=== PATIENT | male | born 1955 | race Caucasian/White ===

== ENCOUNTER 2016-10-13 10:28 | Inpatient (IN) | payer BC ==
[2016-09-07 11:12] LABS: BASO % 0.2 %; BASO ABS # 0.02 K/uL (0-0.2); COMPLETE YES; EOS % 0.1 %; HEMATOCRIT 48.1 % (42-52); IG% 0.3 %; LYMPH % 10.9 %; LYMPH ABS # 1.23 K/uL (1.2-3.4); MEAN CELL VOLUME 86.4 fL (80-100); MEAN CORPUSCULAR HEMOGLOBIN 29.8 pg (25-34); MEAN CORPUSCULAR HGB CONC 34.5 g/dl (32-36); MEAN PLATELET VOLUME 11.8 fL (7.4-10.4); NEUT % 83.5 %; PLATELET COUNT 248 K/uL (130-400); RED BLOOD COUNT 5.57 M/uL (4.7-6.1); WHITE BLOOD COUNT 11.25 K/uL (4.8-10.8)
[2016-09-07 11:19] LABS: URINE APPEARANCE CLEAR (CLEAR); URINE BILIRUBIN NEG (NEG); URINE COLOR YELLOW; URINE NITRITE NEG (NEG); URINE PH 5.5 (4.5-7.5); URINE SPECIFIC GRAVITY 1.015 (1.000-1.030); UROBILINOGEN NEG (NEG); ZZUR CULT IF INDIC CLEAN CATCH NO
[2016-09-07 11:23] LABS: MANUAL MICROSCOPIC REQUIRED? NO; REVIEW REQ? NO
[2016-09-07 11:25] LABS: PARTIAL THROMBOPLASTIN RATIO 1.1; PROTHROMBIN TIME (PATIENT) 10.3 SECONDS (9.0-12.0)
[2016-09-07 11:49] LABS: BLOOD UREA NITROGEN 21 mg/dl (7-18); CALCIUM 9.3 mg/dl (8.5-10.1); CARBON DIOXIDE 28 mmol/L (21-32); CHLORIDE 105 mmol/L (98-107); CREATININE 0.89 mg/dl (0.60-1.40); GLUCOSE 102 mg/dl (70-99); POTASSIUM 4.2 mmol/L (3.5-5.1); SODIUM 140 mmol/L (136-145)
[2016-10-01 14:58] VITALS: BMI 39.0
--- NOTE | 2016-10-12 18:19 | HISTORY & PHYSICAL EXAMINATION ---
DATE OF ADMISSION: 10/13/2016 CHIEF COMPLAINT: Left hip pain. HISTORY OF PRESENT ILLNESS: This is a 61-year-old male patient of Dr. Muñoz'sravani complaining of chronic left hip pain, longstanding, now progressively getting worse. The patient has been diagnosed with end-stage osteoarthritis, per clinical and radiographic exams. The patient has failed conservative treatment including anti-inflammatories and intra-articular injections. The patient has increased pain with weightbearing activities and his pain does interfere with his activities of daily living. PAST MEDICAL HISTORY: Hypothyroidism, osteoarthritis and asthma. SOCIAL HISTORY: Nonsmoker, nondrinker. PAST SURGICAL HISTORY: Cholecystectomy, hernia and knee scope. FAMILY HISTORY: Noncontributory. REVIEW OF SYSTEMS: The patient complains of chronic left hip pain. Otherwise, denies any shortness of breath, chest pain, nausea, vomiting, or any other joint complaints. MEDICATIONS: Include Synthroid 100 mcg daily, Advair Diskus 100 mcg per 50 mcg 1 puff daily, aspirin 81 mg daily, and vitamin D 2000 international units daily. ALLERGIES: INCLUDE PENICILLIN. PHYSICAL EXAMINATION: GENERAL: Well-developed, well-nourished 61-year-old male in no acute distress. He is alert and oriented x3 and pleasant. HEENT: Normocephalic, atraumatic. Extraocular motions are intact. Pupils are equal and reactive to light. HEART: Regular rate and rhythm, no murmurs. LUNGS: Clear. ABDOMEN: Soft and nontender, bowel sounds are present. EXTREMITIES: Left hip revealed no significant flexion contracture. He does have pain with internal and external rotation passively with some crepitation. He has 5/5 strength. Neurologically and neurovascularly he is intact in his left lower extremity. DIAGNOSES: Left hip end-stage osteoarthritis, hypothyroidism and osteoarthritis. PLAN: The patient was advised of his diagnosis. Indications, risks, benefits, and postop course have all been reviewed. The patient wishes to proceed with an elective left total hip arthroplasty. Necessary consent forms, preoperative testing and clearances will be obtained.
[~2016-10-13] VITALS: Ht 177.8 cm; Wt 122.3 kg
[2016-10-13] VITALS (7 sets, daily range): BP systolic 110–134; BP diastolic 67–80; PULSE 61–78; TEMP 36.4–36.7; O2SAT 92–96; Ht 177.8 cm; Wt 122.3 kg
[2016-10-13] MEDS: TRANEXAMIC ACID INJ 1,000 MG in SODIUM CHLORIDE 0.9% 100ML 100 ML IV SCH ×2 (06:00→06:30)
[~2016-10-13 10:28] MED LIST: ACETAMINOPHEN 500 MG TAB PO SCH; ADVIN10/60 INH; ASPI81TA28 PO; ATROPINE SULFATE 0.1 MG/ML 5ML SYR IV PRN; CHOL2000 PO; CeleBREX 200 MG CAP PO SCH; DEXAMETHASONE 4 MG TAB PO SCH; EpHEDrine SULFATE INJ 50 MG/ML AMP IV PRN; FAMOTIDINE 20 MG TAB PO SCH; FENTANYL CITRATE INJ 50 MCG/1 ML 2 ML VIAL IV PRN; GABAPENTIN 300 MG CAP PO SCH; HYDR-5688 PO; LACTATED RINGER'S 1000ML IV SCH; LACTATED RINGER'S 500 ML IV SCH; LEVO100T PO; METOCLOPRAMIDE HCL 10 MG TAB PO SCH; ONDANSETRON INJ 2 MG/ML 2 ML VIAL IV PRN; ROPIVACAINE 5MG/ML 30 ML 150 MG, BUPIVACAINE/EPINEPHR 0.5% MPF 30 ML, KETOROLAC TROMETH... INFIL SCH; VANCOMYCIN INJ 1,800 MG in SODIUM CHLORIDE 0.9% 500ML 500 ML IV SCH
[2016-10-13] MEDS ORDERED: ADVIN10/60 INH (10:57)
--- NOTE | 2016-10-13 11:01 | History & Physical Bridge Note ---
H&P Re-Evaluation Bridge Note: I have examined the patient, reviewed the History & Physical and in the interval since the performance of the History & Physical I have noted the following changes of clinical significance: No changes noted
[2016-10-13] MEDS ORDERED: MIDAZOLAM HCL 1 MG/ML 2ML VIAL ONE ×2 (11:18→15:09)
[2016-10-13] MEDS ORDERED: FENTANYL CITRATE INJ 50 MCG/1 ML 2 ML VIAL ONE ×2 (11:19→16:39)
[2016-10-13] MEDS ORDERED: ORTHO JOINT ANESTHETIC ONE (12:52)
[2016-10-13] MEDS ORDERED: BACITRACIN 50000 UNIT VIAL ONE (12:53)
[2016-10-13] MEDS ORDERED: POVIDONE-IODINE OP SOLN 30 ML BTL ONE ×2 (12:54→14:14)
[2016-10-13] MEDS ORDERED: BUPIVACAINE 0.5 % 5 MG/1 ML PF 10ML VIAL ONE (13:01)
[2016-10-13] MEDS ORDERED: KETAMINE HCL INJ 50 MG/ML 10 ML VIAL ONE (13:40)
[2016-10-13] MEDS ORDERED: LIDOCAINE HCL 2% 2 ML VIAL (20MG/ML) ONE (14:05)
[2016-10-13] MEDS ORDERED: SODIUM CHLORIDE 0.9% INJ 10 ML VIAL ONE (14:05)
[2016-10-13] MEDS ORDERED: PROPOFOL IV EMULSION 10 MG/ML 20 ML VIAL IV ONE ×3 (14:05→15:48)
--- NOTE | 2016-10-13 17:00 | [facility] Operative Report ---
Operative Report Operative Date Oct 13, 2016. Pre-Operative Diagnosis Left Hip End-stage Osteoarthritis Post-Operative Diagnosis same Procedure(s) Performed left KAEL Surgeon Dr. Arnulfo Muñoz [employer] Surgeon(s) Boaz Liu PA-c Estimated Blood Loss 300 ML Findings GRADE 4 DJD LATERAL SUBLUXATION Specimens Permanent specimen A: Left Femoral head Drains 2 hemovac Anesthesia spinal sedation orhomix Complication(s) None Disposition Recovery Room / PACU Indications end stage oa hip I attest to the content of the Intraoperative Record and any orders documented therein. Any exceptions are noted below.
[2016-10-13] MEDS ORDERED: MAGNESIUM HYDROXIDE SUSP 30 ML UDC PO PRN (17:15)
[2016-10-13] MEDS ORDERED: ZOLPIDEM TARTRATE 5 MG TAB PO PRN (17:15)
[2016-10-13] MEDS ORDERED: DiphenhydrAMINE HCL 50 MG/ML VIAL IV PRN (17:15)
[2016-10-13] MEDS ORDERED: ONDANSETRON INJ 2 MG/ML 2 ML VIAL IV PRN (17:15)
[2016-10-13] MEDS ORDERED: BISACODYL 10 MG SUPP PR PRN (17:15)
[2016-10-13] MEDS ORDERED: FLUTICASONE/SALMETEROL 100/50 (ADVAIR) 14 PUFF/1 INHALER INH SCH (17:15)
[2016-10-13] MEDS ORDERED: MoRPHine SULFATE 2 MG/ML CARP IV PRN ×2 (17:15→18:15)
[2016-10-13] MEDS ORDERED: ALUMINUM/MAGNESIUM/SIMETH (MAALOX MAX) 30 ML UDC PO PRN (17:15)
--- NOTE | 2016-10-13 17:32 | Anesthesiology Progress Note ---
Anesthesia Post Op Note Date & Time Oct 13, 2016 at 17:33 Vital Signs Pain Intensity: 0 Vital Signs Past 12 Hours Date Time Temp Pulse Resp B/P Pulse Ox O2 Delivery O2 Flow Rate FiO2 10/13/16 17:25 36.5 66 16 107/59 94 Nasal Cannula 3 10/13/16 17:15 65 16 104/53 94 Nasal Cannula 3 10/13/16 17:05 67 16 114/67 94 Mask 3 10/13/16 16:56 36.7 68 16 109/71 95 Mask 10 10/13/16 10:40 36.6 78 16 134/80 95 Room Air Notes Mental Status: alert / awake / arousable, participated in evaluation Pt Amnestic to Procedure: Yes Nausea / Vomiting: adequately controlled Pain: adequately controlled Airway Patency, RR, SpO2: stable & adequate BP & HR: stable & adequate Hydration State: stable & adequate Anesthetic Complications: no major complications apparent
--- NOTE | 2016-10-13 18:10 | DIAGNOSTIC IMAGING REPORT ---
SINGLE VIEW PELVIS; SINGLE VIEW LEFT HIP CLINICAL HISTORY: Postoperative examination. FINDINGS: An AP portable view of the hips and lower pelvis with a crosstable lateral portable view of the left hip are obtained. A bipolar left hip arthroplasty is in near-anatomic alignment. 2 cortical lag screws transfix the acetabular cup. No acute fracture is seen. There are expected postoperative changes overlying the left hip including skin clips, a surgical drain, subcutaneous gas, and soft tissue swelling. Mild arthritic change is noted in the right hip. Atherosclerotic calcification is noted in the femoral arteries. IMPRESSION: Expected postoperative findings status post left hip arthroplasty. No acute fracture is seen. Electronically signed by: Umesh Ramirez M.D. 10/13/2016 6:08 PM Dictated Date/Time: 10/13/2016 6:07 PM
[2016-10-13] MEDS ORDERED: MoRPHine SULFATE 4 MG/ML 1 ML CARP\\VIAL IV PRN (18:15)
[2016-10-13] MEDS ORDERED: MoRPHine SULFATE 10 MG/ML CARP/VIAL IV PRN (18:15)
[2016-10-13] MEDS: FERROUS GLUCONATE 324 MG TAB PO SCH (19:45)
[2016-10-13] MEDS: D5W AND 1/2NSS + 20MEQ KCL 1,000 ML IV SCH (19:45)
[2016-10-13] MEDS: FLUTICASONE/SALMETEROL 100/50 (ADVAIR) 14 PUFF/1 INHALER INH SCH (20:30)
[2016-10-13] MEDS: OXYCODONE HCL IR 5 MG TAB (IMMEDIATE RELEASE) PO PRN (20:32)
[2016-10-13] MEDS: SENNA 8.6 MG TAB PO SCH (20:32)
[2016-10-13] MEDS: DOCUSATE SODIUM 100 MG CAP PO SCH (20:33)
[2016-10-13] MEDS: ASPIRIN 81 MG ECTAB PO SCH (20:33)
[2016-10-13] MEDS: ACETAMINOPHEN 500 MG TAB PO SCH (21:38)
[2016-10-13] MEDS: KETOROLAC TROMETHAMINE 30 MG/ML VIAL IV. SCH (21:38)
[2016-10-13] MEDS ORDERED: VANCOMYCIN INJ 1,800 MG in SODIUM CHLORIDE 0.9% 500ML 500 ML IV SCH (23:00)
[2016-10-14] MEDS: D5W AND 1/2NSS + 20MEQ KCL 1,000 ML IV SCH (03:37)
[2016-10-14] MEDS: KETOROLAC TROMETHAMINE 30 MG/ML VIAL IV. SCH ×3 (03:37→16:08)
[2016-10-14 03:40] VITALS: BP 125/68; PULSE 68; TEMP 36.4; O2SAT 94
[2016-10-14] MEDS: ACETAMINOPHEN 500 MG TAB PO SCH ×3 (05:40→21:29)
[2016-10-14] MEDS: LEVOTHYROXINE 100 MCG TAB PO SCH (05:40)
[2016-10-14 05:50] LABS: HEMATOCRIT 36.9 % (42-52); MEAN CELL VOLUME 85.8 fL (80-100); MEAN CORPUSCULAR HEMOGLOBIN 29.8 pg (25-34); MEAN CORPUSCULAR HGB CONC 34.7 g/dl (32-36); MEAN PLATELET VOLUME 11.1 fL (7.4-10.4); PLATELET COUNT 187 K/uL (130-400); WHITE BLOOD COUNT 17.38 K/uL (4.8-10.8)
[2016-10-14 06:13] LABS: BASO % 0.1 %; BASO ABS # 0.01 K/uL (0-0.2); COMPLETE YES; EOS % 0.1 %; IG% 0.3 %; LYMPH % 8.8 %; LYMPH ABS # 1.53 K/uL (1.2-3.4); MONO % 9.7 %
[2016-10-14 06:15] LABS: BUN/CREATININE RATIO 19.9 (10-20); CREATININE 0.83 mg/dl (0.60-1.40); POTASSIUM 4.2 mmol/L (3.5-5.1)
--- NOTE | 2016-10-14 07:07 | OPERATIVE REPORT ---
DATE OF OPERATION: 10/13/2016 INDICATION FOR PROCEDURE: The patient is a 61-year-old male who presents with progressive osteoarthritis of the left hip. His x-rays demonstrate now he has bone on bone in his left hip. He does have some calcification in the lateral acetabulum, large osteophytes there, possibly some heterotrophic bone. He has superior lateral subluxation of the hip which is completely bone on bone at this time. He is also a very large individual, BMI of 38+, and he has very heavy muscles and has obese abdomen. PREOPERATIVE DIAGNOSES: End-stage osteoarthritis, left hip, and obesity. POSTOPERATIVE DIAGNOSES: Same. PROCEDURE: Left total hip arthroplasty with some increased difficulty due to his size and obesity. SURGEON: Dr. Muñoz. PRISON GUARD SUPERVISOR: SARAN Watson. ANESTHESIA: Spinal sedation and Orthomix. OPERATIVE PROCEDURE: The patient was taken to the operating room and anesthetized under anesthesia as dictated. He was placed supine on the operating room table on a sacral pad. He was translated to left side of the bed so his hip could be approached. A foot roll was placed to flex his knee 90 degrees and hip 60 degrees. The bed was placed in Trendelenburg to drain pelvic veins and tilted to the right slightly to help expose the left acetabulum. His left hip was then sterilely prepped and draped in the usual sterile fashion. As part of the prepping and draping, we did have to tape his belly off to the right side of the bed to aid in exposure. We did use ChloraPrep type prep. After appropriate preoperative antibiotics documented, his hip was approached via a Hardinge-type approach. A longitudinal incision was made over the lateral left hip. Skin was incised sharply. Subcutaneous tissue was divided down to the fascia, subcutaneous bleeders were elevated. Subcutaneous flaps were elevated off the deep fascia. Deep fascia was divided longitudinally and the gluteus toya fascia was split proximally. The patient had thickened trochanteric bursa which was resected. Gluteus medius tendon was noted to be intact. The medius was then split between its anterior 40% and posterior 60%. This was divided down to the minimus which was divided and reflected off the capsule. Deep capsule was divided down to the hip joint. A curvilinear incision was made through the gluteus medius tendon, leaving a cuff of tissue for repair on the greater trochanter, and then the vastus lateralis was split longitudinally for about 4 cm and a muscular capsular flap was elevated off the hip joint. Hip joint demonstrated an arthritic hip joint, bone on bone, eburnated bone, femoral neck osteophytes, acetabular osteophytes circumferentially. It was noted the patient very heavily muscled, had a heavy leg, and this did make soft tissue retraction more difficult during the procedure. The hip was then dislocated with flexion and external rotation. The femoral neck cut was made approximately 15 mm proximal to the lesser trochanter in neutral anteversion using an oscillating saw. The femoral neck and head fragment were removed. Then, acetabular retractors were placed. The superior acetabular retractor which was self-retaining type retractor was impacted into the ilium. A blunt Hohmann retractor was placed anteriorly. A double-angled inferior ischial retractor was placed. The acetabular labrum had very large labral tissue which was resected. The patient had anterior, superior, posterior and inferior osteophytes. These were resected with a rongeur. Some of the osteophytes superior laterally were fractured when placing the retractor. I did not affect the integrity of the acetabulum at all. The soft tissue in the acetabular fossa was resected. The anterior capsule was released and partial capsulectomy was performed. Then, I started with a 48 mm reamer, went up in 2 mm increments up to a 58 mm diameter which was appropriate fit and fill. I used the [employer] Trident PSL cup, we chose a 58G cup. We did a trial reduction with the trial first and then went ahead and impacted in the cup. Approximated the cup position to be 45 degrees of abduction and 15 degrees of anteversion. There was good press fit. Two additional bone screws 6.5 x 20 and 25 mm were used. The patient had very hard bone and screws held well. The Trident X3 poly 36-mm 10-degree G liner was placed with high wall posteriorly. This was also assessed to be stable. We irrigated out the hip with saline copiously. Then, went ahead and prepared the femur. The femur was exposed with flexion and external rotation. The box osteotome was used to open up the canal. Canal reamer was used and sequential broaches up to a 5 which had a tight fit and fill. We used 127-degree neck angle based on preoperative templating. A +0 neck length. We reduced the hip trial and leg lengths, there was lengthening by a few millimeters, but there was satisfactory stability through full range of motion. The trials were redislocated, trials removed, and canal irrigated again with sterile saline solution and pulsatile lavage. Then, the final component was the Accolade tapered uncemented stem, this was the Accolade II stem which was 5 with 127-degree neck angle. This was impacted into position with a tight pressfit. Then, we placed on the [employer] ceramic 36 mm +0 neck length head. This was reduced to the acetabulum. Stability was verified. After copious irrigation, 2 drains were brought out laterally deep to the gluteus medius. Then, the gluteus medius was repaired with transosseous #5 FiberWire sutures with German-Douglas suture technique and lateral row soft tissue repair with [id number] #2 FiberWire with the split in the medius repaired with [id number]-[id number] #1 Vicryl and the vastus lateralis split closed with interrupted #1 Vicryl. Prior to the repair and closure, we did do a Betadine soak per protocol. We also injected Orthomix. The wound was irrigated again with sterile saline. Then, the fascia liss was closed with interrupted [id number] #1 Vicryl sutures. The subcutaneous tissue closed in layers with interrupted 2-0 Vicryl and skin was closed with stanton and a sterile dressing was applied. The patient had approximately 300 mL of blood loss. SARAN Watson, was my first breaker feeder. He functioned as first breaker feeder throughout the procedure with soft tissue retraction, instrument management, leg positioning, leg retraction as necessary, and he did perform the final outer fascial closure, subcutaneous and skin closure, and will participate in some of the postop care of the patient. I attest to the content of the Intraoperative Record and any orders documented therein. Any exceptio ns are noted below.
[2016-10-14 07:15] VITALS: BP 114/67; PULSE 61; TEMP 36.7; O2SAT 96
--- NOTE | 2016-10-14 08:06 | Orthopedic Progress Note ---
Orthopedic Progress Note Date of Service Oct 14, 2016. Subjective Post OP Day: 1 Reports: feeling well, pain controlled w PO medications, Denies: SOB, calf pain , chest pain, complaints, light headedness, nausea / vomiting Objective calves soft nontender, N/V intact, hip located, capillary refill less than 2 sec., dressing C/D/I, A&O x3, toes mobile Silverlon in tact. Date Time Temp Pulse Resp B/P Pulse Ox O2 Delivery O2 Flow Rate FiO2 10/14/16 07:15 36.7 61 18 114/67 96 Room Air 10/14/16 03:40 36.4 68 18 125/68 94 Room Air 10/14/16 00:02 Room Air 10/13/16 23:10 36.7 61 18 116/67 92 Room Air 10/13/16 21:04 36.6 66 18 110/70 93 Nasal Cannula 2.0 10/13/16 19:38 36.4 63 18 113/71 96 Nasal Cannula 2.0 10/13/16 18:48 36.5 62 18 111/69 95 Nasal Cannula 2.0 10/13/16 18:08 36.5 63 18 110/71 96 Nasal Cannula 4.0 10/13/16 17:35 94 Nasal Cannula 3.0 10/13/16 17:35 36.5 65 20 115/74 94 Nasal Cannula 4.0 10/13/16 17:35 Nasal Cannula 3.0 10/13/16 17:25 36.5 66 16 107/59 94 Nasal Cannula 3 10/13/16 17:15 65 16 104/53 94 Nasal Cannula 3 10/13/16 17:05 67 16 114/67 94 Mask 3 10/13/16 16:56 36.7 68 16 109/71 95 Mask 10 10/13/16 10:40 36.6 78 16 134/80 95 Room Air Laboratory Results 24 Hours: Test 10/14/16 05:15 White Blood Count 17.38 K/uL Red Blood Count 4.30 M/uL Hemoglobin 12.8 g/dL Hematocrit 36.9 % Mean Corpuscular Volume 85.8 fL Mean Corpuscular Hemoglobin 29.8 pg Mean Corpuscular Hemoglobin Concent 34.7 g/dl Platelet Count 187 K/uL Mean Platelet Volume 11.1 fL Neutrophils (%) (Auto) 81.0 % Lymphocytes (%) (Auto) 8.8 % Monocytes (%) (Auto) 9.7 % Eosinophils (%) (Auto) 0.1 % Basophils (%) (Auto) 0.1 % Neutrophils # (Auto) 14.09 K/uL Lymphocytes # (Auto) 1.53 K/uL Monocytes # (Auto) 1.69 K/uL Eosinophils # (Auto) 0.01 K/uL Basophils # (Auto) 0.01 K/uL Assessment & Plan Assessment: POD #1, Left KAEL Plan: PT/ OT DVT proph- ASA D/C planning- Home w Inhouse Planning Pain Management: Toradol, Morphine, PO Tylenol, Oxy IR DVT Prophylaxis: TEDs, SCDs, ASA Discharge Planning Discharge Planning: home with home health Pain Management: PO Tylenol, Oxy IR DVT Prophylaxis: TEDs, ASA Therapy: Physical Therapy, Occupational Therapy
[2016-10-14] MEDS: FLUTICASONE/SALMETEROL 100/50 (ADVAIR) 14 PUFF/1 INHALER INH SCH ×2 (08:35→20:46)
[2016-10-14] MEDS: FERROUS GLUCONATE 324 MG TAB PO SCH ×3 (08:36→17:38)
[2016-10-14] MEDS: ASPIRIN 81 MG ECTAB PO SCH ×2 (08:36→20:46)
[2016-10-14] MEDS: DOCUSATE SODIUM 100 MG CAP PO SCH ×2 (08:36→20:46)
[2016-10-14] MEDS: MULTIVITAMIN TAB PO SCH (08:36)
[2016-10-14] MEDS: PANTOprazole SOD 40 MG TAB PO SCH (08:37)
[2016-10-14] MEDS: CHOLECALCIFEROL 1000 INTER.UNIT TAB PO SCH (08:37)
[2016-10-14 09:38] VITALS: PULSE 62; O2SAT 98
--- NOTE | 2016-10-14 10:04 | Anesthesiology Progress Note ---
Anesthesia Post Op Note Date & Time Oct 14, 2016 at 10:04 Vital Signs Pain Intensity: 3.0 Vital Signs Past 12 Hours Date Time Temp Pulse Resp B/P Pulse Ox O2 Delivery O2 Flow Rate FiO2 10/14/16 09:38 62 98 10/14/16 08:29 Room Air 10/14/16 07:15 36.7 61 18 114/67 96 Room Air 10/14/16 03:40 36.4 68 18 125/68 94 Room Air 10/14/16 00:02 Room Air 10/13/16 23:10 36.7 61 18 116/67 92 Room Air Notes Mental Status: alert / awake / arousable, participated in evaluation Pt Amnestic to Procedure: Yes Nausea / Vomiting: adequately controlled Pain: adequately controlled Airway Patency, RR, SpO2: stable & adequate BP & HR: stable & adequate Hydration State: stable & adequate Neuraxial Anesthesia: sensory block resolved Anesthetic Complications: no major complications apparent
--- NOTE | 2016-10-14 11:56 | Medical Consult ---
Consultation Date of Consultation: Oct 14, 2016. Attending Physician: Arnulfo Muñoz M.D. Reason for Consultation: Medical management History of Present Illness This is a 61 y/o male with a history of asthma and hypothyroidism who presents s /p left total hip arthroplasty with Dr. Muñoz on 10/13 for medical management. The patient reports feeling well. He states that his pain is well controlled. He is eating well and urinating without difficulties. The patient was able to pass some gas this morning and had a small bowel movement after that. Patient has been afebrile, and vital signs have been stable. The patient denies fevers , chills, sweats, chest pain, palpitations, claudication, cough, wheezing, shortness of breath, nausea, vomiting, abdominal pain, dysuria, hematuria, urinary retention, paralysis, weakness, numbness and tingling. Past Medical/Surgical History Asthma--chronic Hypothyroidism--chronic Family History Colon cancer Hypertension Myocardial infarction at age less than 60 Social History Smoking Status: Never Smoker Smokeless Tobacco Use: No Alcohol Use: socially (2-3 beers once a week) Drug Use: none Marital Status: Housing Status: lives with significant other Occupation Status: employed Allergies Coded Allergies: Penicillins (Verified Allergy, Intermediate, HIVES, 10/13/16) Bacitracin (Verified Allergy, Unknown, per PCP note , 10/13/16) Neomycin (Verified Allergy, Unknown, per PCP note , 10/13/16) Polymyxin B (Verified Allergy, Unknown, per PCP note , 10/13/16) Current Inpatient Medications Current Inpatient Medications Medications (Trade) Dose Ordered Sig/Raghavendra Route Start Time Stop Time Status Last Admin Dose Admin Salmeterol Xinafoate/ Fluticasone (Advair Diskus 100/50 Inh) 1 puff BID INH 10/13/16 21:00 11/12/16 20:59 10/14/16 08:35 1 PUFF Levothyroxine Sodium (Synthroid Tab) 100 mcg DAILYBB PO 10/14/16 06:00 11/13/16 05:59 10/14/16 05:40 100 MCG Cholecalciferol 2000 inter.unit 2,000 inter.unit QAM PO 10/14/16 09:00 11/13/16 08:59 10/14/16 08:37 2,000 INTER.UNIT Potassium Chloride/Dextrose/ Sod Cl (D5W And 1/2nss + 20meq KCl) 1,000 ml @ 100 mls/hr Q10H IV 10/13/16 17:01 10/14/16 17:00 10/14/16 03:37 100 MLS/HR Ketorolac Tromethamine (Toradol Inj) 30 mg Q6H IV. 10/13/16 22:00 10/14/16 21:59 10/14/16 09:52 30 MG Oxycodone HCl (Roxicodone Immediate Rel Tab) 1 TABLET FOR PAIN RATING... Q4H PRN PO 10/13/16 17:15 10/27/16 17:14 10/13/16 20:32 10 MG Acetaminophen (Tylenol Tab) 1,000 mg Q8H PO 10/13/16 22:00 11/12/16 21:59 10/14/16 05:40 1,000 MG Magnesium Hydroxide (Milk Of Magnesia Susp) 30 ml Q6H PRN PO 10/13/16 17:15 11/12/16 17:14 Bisacodyl (Dulcolax Supp) 10 mg DAILY PRN ND 10/13/16 17:15 11/12/16 17:14 Senna (Senokot Tab) 17.2 mg HS PO 10/13/16 21:00 11/12/16 20:59 10/13/16 20:32 17.2 MG Docusate Sodium (coLACE CAP) 100 mg BID PO 10/13/16 21:00 11/12/16 20:59 10/14/16 08:36 100 MG Diphenhydramine HCl (Benadryl Inj) 25 mg Q8H PRN IV 10/13/16 17:15 11/12/16 17:14 Al Hydrox/Mg Hydrox/Simethicone (Maalox Max Susp) 15 ml Q4H PRN PO 10/13/16 17:15 11/12/16 17:14 Zolpidem Tartrate (Ambien Tab) 5 mg HSZ PRN PO 10/13/16 17:15 11/12/16 17:14 Multivitamins (Multivitamin Tab) 1 tab QAM PO 10/14/16 09:00 11/13/16 08:59 10/14/16 08:36 1 TAB Ondansetron HCl (Zofran Inj) 4 mg Q6H PRN IV 10/13/16 17:15 11/12/16 17:14 Ferrous Gluconate (Ferrous Gluconate Tab) 324 mg TIDM PO 10/13/16 17:45 11/12/16 17:59 10/14/16 08:36 324 MG Pantoprazole Sodium (Protonix Tab) 40 mg QAM PO 10/14/16 09:00 11/13/16 08:59 10/14/16 08:37 40 MG Aspirin (Ecotrin Tab) 81 mg BID PO 10/13/16 21:00 11/12/16 20:59 10/14/16 08:36 81 MG Morphine Sulfate (MoRPHine SULFATE INJ) 2 mg Q4HWA PRN IV 10/13/16 18:15 10/27/16 18:14 Morphine Sulfate (MoRPHine SULFATE INJ) 4 mg Q4HWA PRN IV 10/13/16 18:15 10/27/16 18:14 Morphine Sulfate (MoRPHine SULFATE INJ) 6 mg Q4HWA PRN IV 10/13/16 18:15 10/27/16 18:14 Review of Systems See HPI for pertinent positives and negatives. All other systems reviewed and negative. Physical Exam Date Time Temp Pulse Resp B/P Pulse Ox O2 Delivery O2 Flow Rate FiO2 10/14/16 09:38 62 98 10/14/16 08:29 Room Air 10/14/16 07:15 36.7 61 18 114/67 96 Room Air 10/14/16 03:40 36.4 68 18 125/68 94 Room Air 10/14/16 00:02 Room Air 10/13/16 23:10 36.7 61 18 116/67 92 Room Air 10/13/16 21:04 36.6 66 18 110/70 93 Nasal Cannula 2.0 10/13/16 19:38 36.4 63 18 113/71 96 Nasal Cannula 2.0 10/13/16 18:48 36.5 62 18 111/69 95 Nasal Cannula 2.0 10/13/16 18:08 36.5 63 18 110/71 96 Nasal Cannula 4.0 10/13/16 17:35 94 Nasal Cannula 3.0 10/13/16 17:35 36.5 65 20 115/74 94 Nasal Cannula 4.0 10/13/16 17:35 Nasal Cannula 3.0 10/13/16 17:25 36.5 66 16 107/59 94 Nasal Cannula 3 10/13/16 17:15 65 16 104/53 94 Nasal Cannula 3 10/13/16 17:05 67 16 114/67 94 Mask 3 10/13/16 16:56 36.7 68 16 109/71 95 Mask 10 General Appearance: WD/WN, no apparent distress, + obese Head: normocephalic, atraumatic Eyes: normal inspection, PERRL, EOMI ENT: normal ENT inspection, hearing grossly normal, pharynx normal Neck: supple, no JVD, trachea midline Respiratory/Chest: lungs clear, normal breath sounds, no respiratory distress Cardiovascular: regular rate, rhythm, no gallop, no murmur Abdomen/GI: normal bowel sounds, non tender, soft Extremities/Musculoskelatal: normal inspection, no calf tenderness, no pedal edema, + pertinent finding (drain in place left hip) Neurologic/Psych: alert, normal mood/affect, oriented x 3 Skin: normal color, warm/dry, no rash Laboratory Results Last 24 Hours Test 10/14/16 05:15 White Blood Count 17.38 K/uL Red Blood Count 4.30 M/uL Hemoglobin 12.8 g/dL Hematocrit 36.9 % Mean Corpuscular Volume 85.8 fL Mean Corpuscular Hemoglobin 29.8 pg Mean Corpuscular Hemoglobin Concent 34.7 g/dl Platelet Count 187 K/uL Mean Platelet Volume 11.1 fL Neutrophils (%) (Auto) 81.0 % Lymphocytes (%) (Auto) 8.8 % Monocytes (%) (Auto) 9.7 % Eosinophils (%) (Auto) 0.1 % Basophils (%) (Auto) 0.1 % Neutrophils # (Auto) 14.09 K/uL Lymphocytes # (Auto) 1.53 K/uL Monocytes # (Auto) 1.69 K/uL Eosinophils # (Auto) 0.01 K/uL Basophils # (Auto) 0.01 K/uL RDW Standard Deviation 43.3 fL RDW Coefficient of Variation 13.9 % Immature Granulocyte % (Auto) 0.3 % Immature Granulocyte # (Auto) 0.05 K/uL Red Blood Cell Morphology Unremarkable Sodium Level 140 mmol/L Potassium Level 4.2 mmol/L Chloride Level 107 mmol/L Carbon Dioxide Level 25 mmol/L Anion Gap 8.0 mmol/L Blood Urea Nitrogen 17 mg/dl Creatinine 0.83 mg/dl Est Creatinine Clear Calc Drug Dose 121.0 ml/min Estimated GFR () 109.3 Estimated GFR (Non- 94.3 BUN/Creatinine Ratio 19.9 Random Glucose 146 mg/dl Calcium Level 8.0 mg/dl Assessment & Plan 61 y/o male with a history of asthma and hypothyroidism who presents s/p left total hip arthroplasty with Dr. Muñoz on 10/13 for medical management. Tolerated procedure well. Eating and urinating without difficulties. Passed gas and had a bowel movement. Afebrile, VSS. -Pain management, DVT prophylaxis, and PT/OT as per primary team Asthma -Continue Advair 1 puff inhaled qd Hypothyroidism -Continue Synthroid 100 g PO qd Code Status -Level I, FULL RESUSCITATION STATUS Thank you for this consultation. We will continue to follow. I agree with PA assessment and plan and have seen and examined pt myself Resting comfortably in bed Ambulation Mild-mod joint pain VSS Labs reviewed Stable for medical standpoint for discharge
[2016-10-14] MEDS ORDERED: NURSING VERBAL MED ORDER ONE (12:30)
[2016-10-14] MEDS: OXYCODONE HCL IR 5 MG TAB (IMMEDIATE RELEASE) PO PRN (13:40)
[2016-10-14 15:00] VITALS: BP 124/70; PULSE 62; TEMP 36.6; O2SAT 98
[2016-10-14] MEDS: SENNA 8.6 MG TAB PO SCH (20:47)
[2016-10-14 23:25] VITALS: BP 108/62; PULSE 70; TEMP 36.9; O2SAT 96
[2016-10-15] MEDS: OXYCODONE HCL IR 5 MG TAB (IMMEDIATE RELEASE) PO PRN ×2 (00:06→07:45)
[2016-10-15] MEDS: LEVOTHYROXINE 100 MCG TAB PO SCH (05:54)
[2016-10-15] MEDS: ACETAMINOPHEN 500 MG TAB PO SCH (05:55)
[2016-10-15 05:56] LABS: MEAN CELL VOLUME 88.2 fL (80-100); MEAN CORPUSCULAR HEMOGLOBIN 30.4 pg (25-34); MEAN CORPUSCULAR HGB CONC 34.4 g/dl (32-36); MEAN PLATELET VOLUME 11.5 fL (7.4-10.4); PLATELET COUNT 159 K/uL (130-400); RED BLOOD COUNT 4.08 M/uL (4.7-6.1); WHITE BLOOD COUNT 8.31 K/uL (4.8-10.8)
[2016-10-15 06:26] LABS: BUN/CREATININE RATIO 18.6 (10-20); CALCIUM 7.8 mg/dl (8.5-10.1); CREATININE 0.84 mg/dl (0.60-1.40); POTASSIUM 3.8 mmol/L (3.5-5.1)
[2016-10-15 06:28] VITALS: BP 117/64; PULSE 71; TEMP 36.5; O2SAT 93
[2016-10-15] MEDS: FERROUS GLUCONATE 324 MG TAB PO SCH (07:40)
[2016-10-15] MEDS: MULTIVITAMIN TAB PO SCH (07:40)
[2016-10-15] MEDS: PANTOprazole SOD 40 MG TAB PO SCH (07:40)
[2016-10-15] MEDS: FLUTICASONE/SALMETEROL 100/50 (ADVAIR) 14 PUFF/1 INHALER INH SCH (07:40)
[2016-10-15] MEDS: CHOLECALCIFEROL 1000 INTER.UNIT TAB PO SCH (07:41)
[2016-10-15] MEDS: ASPIRIN 81 MG ECTAB PO SCH (07:41)
[2016-10-15] MEDS: DOCUSATE SODIUM 100 MG CAP PO SCH (07:41)
[2016-10-15 07:59] VITALS: BP 130/78; PULSE 73; TEMP 37.1; O2SAT 93
[2016-10-15 08:14] VITALS: O2SAT 93
--- NOTE | 2016-10-15 08:22 | Orthopedic Progress Note ---
Orthopedic Progress Note Date of Service Oct 15, 2016. Subjective Post OP Day: 2 Reports: feeling well, pain controlled w PO medications, Denies: SOB, calf pain , chest pain, complaints, light headedness, nausea / vomiting Objective calves soft nontender, N/V intact, hip located, capillary refill less than 2 sec., dressing C/D/I, A&O x3, toes mobile Silverlon in tact. Date Time Temp Pulse Resp B/P Pulse Ox O2 Delivery O2 Flow Rate FiO2 10/15/16 08:14 93 Room Air 10/15/16 07:59 37.1 73 15 130/78 93 Room Air 10/15/16 06:28 36.5 71 18 117/64 93 Room Air 10/15/16 00:12 Room Air 10/14/16 23:25 36.9 70 18 108/62 96 Room Air 10/14/16 15:42 Room Air 10/14/16 15:00 36.6 62 18 124/70 98 Room Air 10/14/16 09:38 62 98 10/14/16 08:29 Room Air Laboratory Results 24 Hours: Test 10/15/16 05:17 Hematocrit 36.0 % Hemoglobin 12.4 g/dL Assessment & Plan Assessment: POD #2, Left KAEL Plan: PT/ OT DVT proph- ASA D/C planning- Home w HH today Appreciate medical input. Inhouse Planning Pain Management: Toradol, Morphine, PO Tylenol, Oxy IR DVT Prophylaxis: TEDs, SCDs, ASA Discharge Planning Discharge Planning: home with home health Pain Management: PO Tylenol, Oxy IR DVT Prophylaxis: TEDs, ASA Therapy: Physical Therapy, Occupational Therapy
[2016-10-15] MEDS ORDERED: ASPEC81 PO (08:25)
[2016-10-15] MEDS ORDERED: RXC5 PO (08:25)
[2016-10-15] MEDS ORDERED: ONDA8TAB6 PO (08:25)
[2016-10-15] MEDS ORDERED: ACET-1138 PO (08:25)
--- NOTE | 2016-10-15 08:27 | Discharge Instructions ---
Discharge Instructions Date of Service Oct 15, 2016. Admission Reason for Admission: Left Hip Degenerative Joint Disease Discharge Discharge Diagnosis / Problem: Left KAEL Discharge Goals Goal(s): Improve function Activity Recommendations Activity Limitations: as noted below . Instructions / Follow-Up Instructions / Follow-Up ACTIVITY RECOMMENDATIONS: SELF CARE INSTRUCTIONS AFTER TOTAL HIP REPLACEMENT Until the incision and soft tissues around your hip have healed, there is a possibility that the hip prosthesis could dislocate. A. Observe the following precautions to prevent dislocation: 1. Don't bend your hip greater than 90 degrees. 2. Avoid crossing your legs or ankles while standing or lying. 3. Sit with your feet placed 6 inches apart. 4. When sitting, keep your knees below your hips. Sit on a firm surface, avoid deep, soft chairs and couches. Use an elevated toilet seat in the bathroom. 5. Don't bend over at the waist. Use a long handled shoehorn and a sock aid to help you put on your shoes and socks. A research greenhouse supervisor can help you cotton picker operator objects that are too high or too low to reach. 6. Keep car riding to a minimum for at least one month after surgery. B. Your balance may be shaky for a while. Use crutches or a walker until directed by your doctor. C. Use hand rails when walking on stairs. D. Wear low heeled shoes with non-slip soles. E. Be sure that your floors are free of things that could trip you - throw rugs , electrical cords, small objects. Avoid wet and waxed floors, especially with crutches and canes. F. Try to walk several times a day with rest periods between. G. Continue with all the exercises taught to you in the hospital. Again, make walking a part of your daily routine. SPECIAL CARE INSTRUCTIONS: VERY IMPORTANT TO READ AND REVIEW A. You may still be at risk for phlebitis and blood clots. 1. Wear surgical stockings (DEBBY hose) for 2 weeks after surgery to improve circulation and reduce swelling. 2. Take Aspirin 81mg twice daily for 4 weeks or as directed by your doctor. This is your blood thinner. 3. High risk patients may be prescribed a stronger blood thinner if necessary. 4. If you are on Coumadin normally, your family doctor/diesel bus mechanic should monitor your blood work. Expect a phone call the day of or the day after bloodwork is drawn to adjust your dosage. B. You must take antibiotics before having dental work, bladder, bowel and other surgery. Your doctor will provide you with a permanent card to carry describing precautions. C. Call [facility] if you have a fever, redness or swelling around the incision, cloudy drainage from incision, or sudden increase in pain in your hip, not relieved by your regular pain medication. D. Please call the office at if you have any concerns or questions about your operation or recovery. * YOU MAY SHOWER, NO TUB BATHS UNTIL CLEARED BY YOUR DOCTOR. * WEAR DEBBY HOSE 20 HOURS PER DAY FOR 2 WEEKS. * YOU SHOULD USE A WALKER OR CRUTCHES FOR 2-4 WEEKS. THIS WILL HELP PREVENT STRAIN ON YOUR HIP MUSCLE AND ALLOW IT TO HEAL PROPERLY. YOU MAY WEAN TO A CANE TOLERATED. * MOST PATIENTS WILL HAVE HOME NURSING FOR THERAPY. IF YOU DECIDE TO DO OUTPATIENT PHYSICAL THERAPY, PLEASE SCHEDULE THIS 3 TIMES PER WEEK. * YOU MAY HAVE A LARGE, BAND-RENAN LIKE DRESSING (SILVERON). THIS WILL REMAIN ON YOUR INCISION FOR 7 DAYS, THEN CAN BE REMOVED. IF INCISION IS LEAKING THROUGH DRESSING, PLEASE CALL THE OFFICE . FOLLOW UP VISIT: If appointment is not already scheduled: Please call [facility] to make a follow-up appointment for 2 weeks after your surgery at . Current Hospital Diet Patient's current hospital diet: Regular Diet Discharge Diet Recommended Diet: Regular Diet Procedures Procedures Performed: Left Total Hip Arthroplasty Uncemented Pending Studies Studies pending at discharge: no Medical Emergencies . Who to Call and When: Medical Emergencies: If at any time you feel your situation is an emergency, please call [phone] immediately. . Non-Emergent Contact Non-Emergency issues call your: Primary Care Provider . "Provider Documentation" section prepared by Leonel Bennett. VTE Core Measure Inpt VTE Proph given/why not?: Other Anticoagulation (asa), T.E.Raiza Gallegos, SCD's [place] Drug Monitoring Program Search Results: patient reviewed within database, no issues identified
[2016-10-15 08:45] VITALS: BP 130/78; PULSE 73; TEMP 37.1; O2SAT 93
--- NOTE | 2016-10-15 09:02 | Hospitalist Progress Note ---
Hospitalist Progress Note Date of Service Oct 15, 2016. (Melba Anguiano PA-C) Subjective Pt evaluation today including: conversation w/ patient, physical exam, chart review, lab review, review of inpatient medication list PO Intake: Tolerating PO diet Voiding: no voiding problems Patient is feeling well. He denies any new complaints. He is eating well and urinating without difficulties. The patient is passing gas and had a bowel movement yesterday. His left hip pain is well controlled. The patient denies fevers, chills, sweats, chest pain, palpitations, claudication, cough, wheezing , shortness of breath, nausea, vomiting, abdominal pain, dysuria, hematuria, urinary retention, paralysis, weakness, numbness and tingling. Additional Comments: See HPI for pertinent positives and negatives. All other systems reviewed and negative. (Melba Anguiano, DEMONDC) Objective Vital Signs Date Time Temp Pulse Resp B/P Pulse Ox O2 Delivery O2 Flow Rate FiO2 10/15/16 08:45 37.1 73 15 93 Room Air 10/15/16 08:14 93 Room Air 10/15/16 07:59 37.1 73 15 130/78 93 Room Air 10/15/16 07:30 Room Air 10/15/16 06:28 36.5 71 18 117/64 93 Room Air 10/15/16 00:12 Room Air 10/14/16 23:25 36.9 70 18 108/62 96 Room Air 10/14/16 15:42 Room Air 10/14/16 15:00 36.6 62 18 124/70 98 Room Air 10/14/16 09:38 62 98 (Melba Anguiaon PA-C) Physical Exam General Appearance: WD/WN, no apparent distress, + obese Eyes: normal inspection, PERRL, EOMI ENT: normal ENT inspection, hearing grossly normal, pharynx normal Neck: supple, no JVD, trachea midline Respiratory/Chest: lungs clear, normal breath sounds, no respiratory distress Cardiovascular: regular rate, rhythm, no gallop, no murmur Abdomen: normal bowel sounds, non tender, soft Extremities: normal inspection, no pedal edema, no calf tenderness Neurologic/Psychiatric: alert, normal mood/affect, oriented x 3 Skin: normal color, warm/dry, no rash (Melba Anguiano PA-C) Laboratory Results Last 24 Hours Test 10/15/16 05:17 White Blood Count 8.31 K/uL Red Blood Count 4.08 M/uL Hemoglobin 12.4 g/dL Hematocrit 36.0 % Mean Corpuscular Volume 88.2 fL Mean Corpuscular Hemoglobin 30.4 pg Mean Corpuscular Hemoglobin Concent 34.4 g/dl RDW Standard Deviation 46.9 fL RDW Coefficient of Variation 14.4 % Platelet Count 159 K/uL Mean Platelet Volume 11.5 fL Sodium Level 143 mmol/L Potassium Level 3.8 mmol/L Chloride Level 108 mmol/L Carbon Dioxide Level 27 mmol/L Anion Gap 8.0 mmol/L Blood Urea Nitrogen 16 mg/dl Creatinine 0.84 mg/dl Est Creatinine Clear Calc Drug Dose 119.6 ml/min Estimated GFR () 108.8 Estimated GFR (Non- 93.8 BUN/Creatinine Ratio 18.6 Random Glucose 113 mg/dl Calcium Level 7.8 mg/dl (Melba Anguiano PA-C) Assessment and Plan 61 y/o male with a history of asthma and hypothyroidism who presents s/p left total hip arthroplasty with Dr. Muñoz on 10/13 for medical management. Tolerated procedure well. Eating and urinating without difficulties. Passed gas and had a bowel movement. Afebrile, VSS. -Pain management, DVT prophylaxis, and PT/OT as per primary team Asthma -Continue Advair 1 puff inhaled qd Hypothyroidism -Continue Synthroid 100 g PO qd Code Status -Level I, FULL RESUSCITATION STATUS Dispo -Pt. is stable from a medical standpoint, we will sign off. Clear for discharge as per primary team. (Melba Anguiano PA-C) I agree with PA assessment and plan and have seen and examined pt myself VSS Labs reviewed Mild pain on ambulation but improving and weightbearing at this time Hemodynamically stable Pt stable from medical standpoint for discharge (Harman Dominguez D.O.)
--- NOTE | 2016-10-28 10:42 | DISCHARGE SUMMARY ---
HISTORY OF PRESENT ILLNESS: This is a 61-year-old male patient of Dr. Muñoz'sravani complaining of chronic left hip pain, longstanding, progressively getting worse. The patient has failed conservative treatment and has been diagnosed with end-stage osteoarthritis in his left hip. The patient wishes to proceed with a left total hip arthroplasty. PAST MEDICAL HISTORY: Hypothyroidism, osteoarthritis and asthma. POSTOPERATIVE COURSE: The patient underwent a left total hip arthroplasty on 10/13/2016. He was followed closely postoperatively with medical consultation, physical therapy, DVT prophylaxis in the form of aspirin and pain control. The patient did very well postoperatively and was discharged home with home health services on postoperative day #2. PHYSICAL EXAMINATION: Left hip Silverlon dressing was clean, dry and intact. There was no redness or drainage. He had no calf tenderness. Negative Homans sign. Neurologically and neurovascularly he was intact in his left lower extremity. DIAGNOSIS: Status post left total hip arthroplasty with history of hypothyroidism, osteoarthritis and asthma. PLAN: The patient was discharged home with home health services. He will continue his preadmission medications with the addition of pain medications and aspirin twice daily for DVT prophylaxis. He will follow up as an outpatient as scheduled.
== END 2016-10-15 11:08 | disposition home health service (06) | DRG 470 ==
LOC: ENRESERVTM → ENRESERVDT → C.ACU 10:28 → C.3E 17:06
PROVIDERS: ADMIT Orthopaedic Surgery Sports Medicine; ATTEND Orthopaedic Surgery Sports Medicine
PROC: 0SRB0JA Replacement of Left Hip Joint with Synthetic Substitute, Uncemented, Open Approach (ICD-10-PCS; principal; 2016-10-13 13:30)
DX: M16.12 Unilateral primary osteoarthritis, left hip (principal); E03.9 Hypothyroidism, unspecified; J45.909 Unspecified asthma, uncomplicated; E66.01 Morbid (severe) obesity due to excess calories; G47.33 Obstructive sleep apnea (adult) (pediatric); Z68.38 Body mass index [BMI] 38.0-38.9, adult; Z79.51 Long term (current) use of inhaled steroids; Z79.82 Long term (current) use of aspirin; Z79.899 Other long term (current) drug therapy

== ENCOUNTER → 2016-10-22 | Outpatient (CLI) | payer BC ==
[~2016-10-22] MED LIST changes: +ACET-1138 PO; -ACETAMINOPHEN 500 MG TAB PO SCH; +ASPEC81 PO; -ASPI81TA28 PO; -ATROPINE SULFATE 0.1 MG/ML 5ML SYR IV PRN; -CeleBREX 200 MG CAP PO SCH; -DEXAMETHASONE 4 MG TAB PO SCH; -EpHEDrine SULFATE INJ 50 MG/ML AMP IV PRN; -FAMOTIDINE 20 MG TAB PO SCH; -FENTANYL CITRATE INJ 50 MCG/1 ML 2 ML VIAL IV PRN; -GABAPENTIN 300 MG CAP PO SCH; -HYDR-5688 PO; -LACTATED RINGER'S 1000ML IV SCH; -LACTATED RINGER'S 500 ML IV SCH; -METOCLOPRAMIDE HCL 10 MG TAB PO SCH; +ONDA8TAB6 PO; -ONDANSETRON INJ 2 MG/ML 2 ML VIAL IV PRN; -ROPIVACAINE 5MG/ML 30 ML 150 MG, BUPIVACAINE/EPINEPHR 0.5% MPF 30 ML, KETOROLAC TROMETH... INFIL SCH; +RXC5 PO; -VANCOMYCIN INJ 1,800 MG in SODIUM CHLORIDE 0.9% 500ML 500 ML IV SCH
--- NOTE | 2016-10-22 16:28 | DIAGNOSTIC IMAGING REPORT ---
LEFT LOWER EXTREMITY VENOUS DOPPLER HISTORY: Left LEG SWELLING COMPARISON STUDY: None. FINDINGS: There is normal compressibility, flow, and augmentation within the left lower extremity deep venous system. IMPRESSION: No DVT within the left lower extremity. Electronically signed by: Claudio Shields M.D. 10/22/2016 4:26 PM Dictated Date/Time: 10/22/2016 4:26 PM
== END | disposition home or self-care (01) ==
LOC: C.ULTR 15:48
PROVIDERS: ATTEND Orthopaedic Surgery Sports Medicine
DX: M79.89 Other specified soft tissue disorders (principal)

== ENCOUNTER 2022-10-14 10:18 | Inpatient (IN) ==
--- NOTE | 2022-10-12 15:30 | Anesthesiology Consultation ---
Date of Service October 12, 2022 Assessment & Plan (1) Encounter for pre-operative examination: Chart Review Chart Review: Acceptable Risk for Surgery and Patient NOT seen in Pre Admission Testing -COVID screening: Per PAT nursing assessment on 10/07/22. Pt returned from [place] on 09/26/22 (by plane; no PPE). Pt tested Covid positive 07/18/22 with home test (had sinus/nasal congestion, cough- symptoms have since resolved). No known COVID-19 positive contacts or current COVID-19 related symptoms. Patient vaccinated for Covid. At surgeon discretion if preop Covid testing being done. Pt requiring admission post operatively. Plan for recheck with COVID [facility] AM DOS due to possibility that patient may have a roommate. OR aware. [facility] order placed Per cardio letter 09/28/22= Patient is "able to achieve at least 4 METS based on stress testing- pt may be cleared from cardiac perspective for surgery." (Attempted numerous times to obtain cardio note and stress testing - report not available) History Surgery Operation Date: 10/14/22 12:20 Proposed Procedures p Robotic assisted Laparoscopic Radical Retropubic Prostatectomy, Possible Open Possible Pelvic Lymph Node Dissection - Modesto Hanks MD Height/Weight Height: 5 ft 10 in Weight: 106.594 kg Allergies Allergy/AdvReac Type Severity Reaction Status Date / Time bacitracin Allergy Intermediate BLISTERS Verified 10/07/22 11:17 neomycin Allergy Intermediate BLISTERS Verified 10/07/22 11:17 Penicillins Allergy Intermediate HIVES Verified 10/07/22 11:16 polymyxin B Allergy Intermediate BLISTERS Verified 10/07/22 11:17 Medications Home Medications Medication Instructions Recorded Confirmed Last Taken celecoxib 200 mg capsule (Celebrex) 200 mg PO QAM 05/13/22 10/07/22 Unknown tadalafil 5 mg tablet 5 mg PO HS 05/13/22 10/07/22 Unknown aspirin 81 mg capsule 81 mg PO QAM 10/07/22 10/07/22 Unknown cholecalciferol (vitamin D3) 25 25 mcg PO QAM 10/07/22 10/07/22 Unknown mcg (1,000 unit) capsule (Vitamin D3) levothyroxine 100 mcg capsule 100 mcg PO QAM 10/07/22 10/07/22 Unknown Past Medical History Medical History Degeneration of lumbosacral intervertebral disc Degenerative joint disease of left hip Family history of ischemic heart disease History of COVID-19 02/2022 body pain, aches, fatigue and 07/18/2022- home test - sinus congestion, mild cough; no hospitalization, no current issues HTN (hypertension) Hypotestosteronism Hypothyroidism Mild intermittent asthma well controlled, no inhaler use in > 3yrs Obesity Prostate cancer (08/12/22) Pure hypercholesterolemia Past Family History Family History Father Heart disease Mother Breast cancer, Onset Age: 54 Sister Endometrial cancer, Onset Age: 54 Sister No problems noted. Sister No problems noted. Brother No problems noted. Grandfather (Maternal) Colon cancer Grandfather (Paternal) Heart disease Grandmother (Paternal) Heart disease Past Surgical History Surgical History H/O arthroscopic knee surgery Right knee H/O umbilical hernia repair History of incisional hernia repair History of total left hip replacement History of vasectomy Hx of cholecystectomy Hx of colonoscopy S/p bilateral carpal tunnel release Social History Smoking Status: Never smoker Do You Dip or Chew Tobacco: No Hx Alcohol Use: Yes Alcohol type: beer, wine and hard liquor alcohol intake frequency: a few times a week Hx Substance Use: No substance use type: does not use Lab Results Anesthesia Preop Results Results Anesthesia Widget: WBC 6.68 K/ul (4.8-10.8) 09/28/22 Hgb 15.3 g/dl (14.0-18.0) 09/28/22 Hct 45.0 % (42.0-52.0) 09/28/22 Plt 195 K/uL (130-400) 09/28/22 Na 140 mmol/L (136-145) 09/28/22 K 4.4 mmol/L (3.5-5.1) 09/28/22 Cl 104 mmol/L (98-107) 09/28/22 CO2 31 mmol/L (21-32) 09/28/22 BUN 15 mg/dl (6-23) 09/28/22 Creat 0.71 mg/dl (0.6-1.4) 09/28/22 Glucose Level 92 mg/dl (70-99(Fasting)) 09/28/22 Urine Color Yellow 09/28/22 Urine Appearance Clear (Clear) 09/28/22 Urine pH 7.5 (4.5-7.5) 09/28/22 Urine Specific Dale 1.006 (1.000-1.030) 09/28/22 Urine Protein Negative (Negative) 09/28/22 Urine Glucose (UA) Negative (Negative) 09/28/22 Urine Ketones Negative (Negative) 09/28/22 Urine Blood Negative (Negative) 09/28/22 Urine Nitrite Negative (Negative) 09/28/22 Urine Bilirubin Negative (Negative) 09/28/22 Urine Urobilinogen Negative (Negative) 09/28/22 Urine Leukocyte Esterase Trace (Negative) H 09/28/22 Urine WBC (Auto) 1-5 /hpf (0-5) 09/28/22 Urine RBC (Auto) 0-4 /hpf (0-4) 09/28/22 Urine Hyaline Casts (Auto) 1-5 /lpf (0-5) 09/28/22 Urine Epithelial Cells (Auto) 20-30 /lpf (0-5) H 09/28/22 Urine Bacteria (Auto) Negative (Negative) 09/28/22 Testing Laboratory Results 09/28/22= URINE CULTURE: Three types of organisms present, all low counts probable skin elizabeth Electrocardiogram Date: 09/28/22 Sinus bradycardia with first-degree AV block at 55 bpm Otherwise normal EKG per cardio Chest X-Ray Date: 09/28/22 Findings: + NAD FINDINGS: PA and lateral chest radiographs are compared to study dated 06/25/2016. The heart is mildly enlarged. The pulmonary vascular is noncongested. There is chronic elevation of the right hemidiaphragm with mild bibasilar atelectasis. The lungs and pleural spaces are clear. There is no pneumothorax. The skeletal structures appear osteopenic. Degenerative change is noted in the thoracic spine. The bony thorax appears intact. Cholecystectomy clips are noted in the right upper quadrant.
[~2022-10-14 10:18] MED LIST changes: -ACET-1138 PO; -ADVIN10/60 INH; -ASPEC81 PO; -CHOL2000 PO; +HEPARIN SOD 5,000 UNIT/0.5 ML VIAL SQ SCH; +LACTATED RINGER'S 1,000 ML IV SCH; -LEVO100T PO; +LR 15ML/HR IV SCH; -ONDA8TAB6 PO; -RXC5 PO; +ceFAZolin 2000MG 2,000 MG/15 ML SYR IV SCH
[2022-10-14] MEDS ORDERED: DEXAMETHASONE SOD INJ 4 MG/ML VIAL ONE (11:00)
[2022-10-14] MEDS ORDERED: PROPOFOL IV EMULSION 10 MG/ML 20 ML VIAL IV ONE (11:00)
[2022-10-14] MEDS ORDERED: ONDANSETRON INJ 2 MG/ML 2 ML VIAL ONE (11:00)
[2022-10-14] MEDS ORDERED: LIDOCAINE 2% 2 ML VIAL/AMP(20MG/ML) INFIL ONE (11:00)
[2022-10-14] MEDS ORDERED: ROCURONIUM BROMIDE 10 MG/ML 5 ML VIAL IV ONE ×6 (11:00→16:21)
[2022-10-14] MEDS ORDERED: SUGAMMADEX SODIUM 200 MG/2 ML VIAL IV ONE (11:01)
[2022-10-14] MEDS ORDERED: MIDAZOLAM HCL 1 MG/ML 2ML VIAL ONE (11:01)
[2022-10-14] MEDS ORDERED: fentaNYL citrate 100 MCG/2 ML VIAL ONE (11:01)
[2022-10-14] MEDS ORDERED: HYDROmorphone INJ 2 MG/ML SYR/VIAL IV PRN (11:43)
[2022-10-14] MEDS ORDERED: ATROPINE SULFATE 0.1 MG/ML 10ML SYR IV PRN (11:43)
[2022-10-14] MEDS ORDERED: PROMETHAZINE HCL 6.25 MG in SODIUM CHLORIDE 0.9% 50 ML IV PRN (11:43)
[2022-10-14] MEDS ORDERED: ePHEDrine sulfate 50 MG/ML AMP IV PRN (11:43)
[2022-10-14] MEDS ORDERED: fentaNYL citrate 100 MCG/2 ML VIAL IV PRN (11:43)
[2022-10-14] MEDS ORDERED: ONDANSETRON INJ 2 MG/ML 2 ML VIAL IV PRN ×2 (11:43→19:55)
--- NOTE | 2022-10-14 12:02 | History & Physical Bridge Note ---
Date of Service October 14, 2022 History & Physical Bridge Note I have examined the patient, reviewed the History & Physical and in the interval since the performance of the History & Physical I have noted the following changes of clinical significance: no changes noted
[2022-10-14] MEDS ORDERED: BUPIVACAINE 0.5 % 5 MG/1 ML MPF 30ML VIAL ONE (12:07)
[2022-10-14] MEDS ORDERED: Nursing to Pharmacy Communication SCH (12:15)
[2022-10-14] MEDS ORDERED: HYDROmorphone INJ 2 MG/ML SYR/VIAL ONE (13:06)
[2022-10-14] MEDS ORDERED: SURGICEL ABSORB HEMOSTAT 2IN X 14IN TOP ONE (13:17)
[2022-10-14] MEDS ORDERED: FLOSEAL HEMOSTATIC MATRIX 10ML TOP ONE (13:17)
[2022-10-14] MEDS ORDERED: BELLADONNA/OPIUM SUPP 60 MG SUPP PR ONE (13:18)
--- NOTE | 2022-10-14 17:46 | Operative Report ---
PG Post Operative Report Pre & Post Diagnosis Operation Date: 10/14/22 12:20 Pre-Op Diagnosis: Prostate Cancer Post-Op Diagnosis: Prostate Cancer I identified the patient and participated in the time-out.: Yes Procedure Operation Date: 10/14/22 12:20 Actual Procedures p Robotic Assisted Laparoscopic Radical Retropubic Prostatectomy, bilateral pelvic lymph node dissection- Modesto Hanks MD Surgeon Modesto Hanks MD Child Psychiatrist GEOVANNA Mukherjee Estimated Blood Loss 500 Findings Consistent with Post-Op Diagnosis Specimens 1) periprostatic fat 2) right pelvic lymph nodes 3) left pelvic lymph nodes 4) prostate, vas deferens, seminal vesicles 5) prostate margins Drains Salazar catheter per urethra, 10 mL in balloon Anesthesia Type General Complications none Disposition Accompanied Patient To Recovery: Yes Disposition: Recovery Room Indications This is a 67-year-old male followed by urology for prostate cancer. After thorough consideration of treatment options he elected to proceed with robot- assisted radical prostatectomy. He presents to the OR today for the surgery. Description of Procedure The patient was identified in the preoperative holding area and informed consent was confirmed. He was then brought to the operating room where general anesthesia was initiated. He was placed supine on the operating room table with all pressure points appropriately padded. His abdomen and genitalia were prepped and draped in the usual sterile fashion and a timeout was performed. Upon inspection he had a well-healed surgical scar in the upper midline from prior cholecystectomy. He was noted to have surgical mesh in place. A 2 cm incision was made above the umbilicus and then a Veress needle was used to obtain access to the abdomen. Proper position was confirmed with the drop test and low initial insufflation pressure. The abdomen was insufflated with CO2 to a pressure of 12 mmHg. An 8 mm robotic port was placed in the incision and the robotic camera was inserted. The abdominal cavity was surveyed, demonstrating no injury to intra-abdominal contents. There was some sigmoid adhesions in the left lower quadrant. In the upper abdomen, the omentum was adhesed to the anterior abdominal wall but this was above the area where the trocar had entered. The remaining robotic ports were placed under direct visualization, with 2 robotic ports on the left side and 1 robotic port on the right. A 12 mm under water assistant port was placed on the right side as well, and a 5 mm under water assistant port w as placed in the right upper quadrant. The robot was then docked. Using sharp dissection, the sigmoid adhesions were lysed to give more mobility to the bowel. Using electrocautery, the bladder was then dropped from the anterior wall of the abdomen, exposing the space of Retzius. This dissection was carried down to expose the pelvic brim and subsequently the anterior surface of the prostate and the endopelvic fascia. The fat overlying the anterior of the prostate was removed and sent for pathologic analysis, labeled as 'periprostatic fat'. The endopelvic fascia was then divided on each side to expose the lateral aspects of the prostate and the lateral aspects of the pedicles. A single 3-0 V-Loc suture was used to ligate the dorsal venous complex to prevent backbleeding in subsequent steps. The fourth arm of the robot was then used to put some gentle traction on the bladder, and the bladder neck was identified. Using electrocautery, the anterior bladder neck was dissected to expose the Salazar catheter, whose tip was removed from the bladder and held anteriorly. There was a prominent lobe of prostate tissue extending into the bladder on the anterior aspect of the bladder neck. The true bladder neck appeared to be somewhat open and the lateral lobes of the prostate were appreciated. Visualization in this direction identified the verumontanum at the base of the prostate. The posterior bladder neck dissection was then completed. At this point bilateral vas deferens were exposed and isolated. The vas deferens were cauterized and then divided. Bilateral seminal vesicles were dissected out as well. Denonvilliers fascia was then divided and the posterior prostate dissection was carried up as far as possible toward the urethra. He appeared to have fairly thick prostatic pedicles as well as a wide prostate. The pedicles were then divided using combination of clips and sharp dissection, trying to use minimal electrocautery. On the right side, a nerve sparing approach was used. On the left side, a partial nerve sparing approach was used. Attention was turned anteriorly and the dorsal venous complex was divided using sharp dissection and electrocautery. The urethra was isolated and then divided sharply. At this point, the prostate was free and was placed in a specimen bag. Bilateral pelvic lymph node dissection was then performed, and the bobby tissue was sent for pathologic analysis. The node of Saranac on both sides appeared somewhat gritty. Palpation at the end noted this to be slightly firm. The pelvis was inspected and meticulous hemostasis was ensured using point cautery and [id number] 4-0 Monocryl sutures. Upon final inspection, there appeared to be some residual prostate tissue near the right pedicle. This was dissected sharply and sent for pathologic analysis separately at the end of the case labeled as prostatic margin. No additional residual prostate tissue was seen. Next, a double-armed V-Loc suture was then used to re-anastomose the bladder neck with the urethra. The bladder side was somewhat larger than the urethra, therefore bladder neck reconstruction was performed using interrupted 3-0 Vicryl sutures to narrow down the dorsal aspect of the bladder neck. Once this was complete, the anastomosis was tested by instilling 120 mL of normal saline into the bladder. Satisfied that the anastomosis was watertight, the catheter balloon was inflated with 10 mL of normal saline. Surgicel and shadia-seal were then applied to the lateral aspects of the pelvis for hemostasis. A 2-0 Vicryl "torsten" style stitch was then used to make a peritoneal window on each side, with the hope of preventing future lymphocele formation. The robot was then undocked. The supraumbilical incision was extended and the prostate was extracted. Interrupted [id number] 0 Vicryl suture was then used to close the fascia at this incision. All skin incisions were anesthetized with 0.5% Marcaine, then more closed with 4-0 Monocryl suture and then a layer of Dermabond was applied. The patient was then awakened from anesthesia and was brought to the PACU in stable condition. GEOVANNA Mukherjee acted as the bedside under water assistant for the duration of the case. She assisted with gaining access, providing retraction and suction. Passing in sutures and applying clips as needed. She also helped with specimen extraction and closing. I attest to the content of the Intraoperative Record and any orders documented therein. Any exceptions are noted below.
--- NOTE | 2022-10-14 18:26 | Anesthesiology Progress Note ---
Date of Service October 14, 2022 Anesthesia Post Procedure Vital Signs Vital Signs: Temp Pulse Resp BP Pulse Ox O2 Del Method O2 Flow Rate 10/14/22 18:20 97.9 F 60 16 99/56 L 94 Nasal Cannula 4 10/14/22 18:10 61 16 100/55 L 94 Nasal Cannula 4 10/14/22 18:00 63 20 95/57 L 95 Oxymask 9 10/14/22 17:50 61 15 94/52 L 93 Oxymask 9 10/14/22 17:41 99.0 F 71 21 114/58 L 95 Oxymask 9 10/14/22 10:47 97.9 F 59 L 20 131/72 94 Room Air Transfer of Care Handoff Completed per policy Notes Mental Status: alert / awake / arousable and participated in evaluation Patient Amnestic to Procedure: Yes Nausea / Vomiting: adequately controlled Pain: adequately controlled Airway Patency, RR, SpO2: stable & adequate BP & HR: stable & adequate Hydration State: stable & adequate Anesthetic Complications: no major complications apparent and Pt Satisfied with anesthetic care
[2022-10-14] MEDS ORDERED: POLYETHYLENE (MIRALAX) 17 GM PACK PO PRN (19:55)
[2022-10-14] MEDS ORDERED: oxyCODONE HCL IR 5 MG TAB (IMMEDIATE RELEASE) PO PRN ×2 (19:55)
[2022-10-14] MEDS ORDERED: MoRPHine SULFATE 4 MG/ML 1 ML CARP\\VIAL IV PRN (19:55)
[2022-10-14] MEDS ORDERED: MoRPHine SULFATE 2 MG/ML CARP IV PRN (19:55)
[2022-10-14] MEDS ORDERED: IBUPROFEN 200 MG TAB PO PRN (19:55)
[2022-10-14] MEDS ORDERED: LACTATED RINGER'S 1,000 ML IV SCH (19:55)
[2022-10-14] MEDS: ceFAZolin 2000MG 2,000 MG/15 ML SYR IV SCH (21:12)
[2022-10-14] MEDS: ACETAMINOPHEN 325 MG TAB PO SCH (21:21)
[2022-10-14] MEDS: DOCUSATE SODIUM 100 MG CAP PO SCH (21:21)
[2022-10-14] MEDS: HEPARIN SOD 5,000 UNIT/0.5 ML VIAL SQ SCH (21:23)
[2022-10-15] MEDS: ACETAMINOPHEN 325 MG TAB PO SCH ×2 (02:21→08:05)
[2022-10-15] MEDS: ceFAZolin 2000MG 2,000 MG/15 ML SYR IV SCH (03:45)
[2022-10-15] MEDS ORDERED: LEVOTHYROXINE SODIUM 100 MCG TABLET PO SCH (06:30)
[2022-10-15 08:01] LABS: Basophils # (auto) 0.01 K/uL (0-0.2); Basophils % (auto) 0.1 %; Eosinophils # (auto) 0.01 K/uL (0-0.50); Eosinophils % (auto) 0.1 %; Hematocrit (blood only) 39.7 % (42.0-52.0); Hemoglobin 13.6 g/dl (14.0-18.0); Immature Granulocytes # (auto) 0.03 K/uL (0.01-0.20); Immature Granulocytes % (auto) 0.3 %; Lymphocytes % (auto) 16.8 %; Mean Corpuscular Hemoglobin 30.8 pg (25.0-34.0); Mean Corpuscular Hgb Conc 34.3 g/dL (32.0-36.0); Mean Corpuscular Volume 89.8 fL (80.0-100.0); Mean Platelet Volume 11.7 fL (9.4-12.4); Monocytes # (auto) 1.19 K/uL (0.11-0.59); Monocytes % (auto) 11.7 %; Neutrophils # (auto) 7.19 K/uL (1.40-6.50); Platelet Count 161 K/uL (130-400); RDW Coefficient of Variation 13.6 % (11.5-14.5); RDW Standard Deviation 44.6 fL (36.4-46.3); Red Blood Count 4.42 M/uL (4.70-6.10); White Blood Count 10.13 K/ul (4.8-10.8)
[2022-10-15] MEDS: DOCUSATE SODIUM 100 MG CAP PO SCH (08:06)
[2022-10-15] MEDS: HEPARIN SOD 5,000 UNIT/0.5 ML VIAL SQ SCH (08:07)
[2022-10-15 08:19] LABS: BUN Creatinine Ratio 22.1 (10-20); Calcium 8.6 mg/dl (8.5-10.1); Creatinine Clr Calc Pharmacy 100.3 ml/min; Est GFR (African American) 103.3 ml/min; Est GFR (Non-African American) 89.1 ml/min; Potassium 4.2 mmol/L (3.5-5.1)
--- NOTE | 2022-10-15 08:57 | Urology Progress Note ---
I have discussed Mr. Gamez's case with GEOVANNA Mukherjee and agree with the above documentation. He is doing well this morning, tolerating a diet, ambulating and pain is well controlled. He is appropriate for discharge home. We will arrange follow-up for voiding trial and pathology review in approximately 10 days. Date of Service October 15, 2022 Assessment & Plan (1) Prostate cancer: Plan POD #1 s/p Robotic Assisted Laparoscopic Radical Retropubic Prostatectomy, bilateral pelvic lymph node dissection with Dr. Hanks. Doing well this morning, progressing as expected. Remains afebrile and hemodynamically stable. Labs today show no leukocytosis, normal renal function, stable hemoglobin at 13.6. Salazar catheter is intact and draining clear yellow urine. Tolerating diet without nausea or vomiting. Plan- Encourage ambulation. Continue regular diet. Maintain Salazar catheter. Will reassess later this morning. Anticipate home with Salazar catheter later today presuming he continues to progress as expected. Admission and Anticipated Discharge Date Admission Date: October 14, 2022 Subjective Patient seen and examined at bedside this AM with Dr. Hanks. Awake, resting in bed on arrival. No acute distress. No acute issues overnight. No fevers. Salazar catheter intact, draining clear yellow urine. Minimal pain. Tolerating a diet, no nausea or vomiting. Has not ambulated or OOB yet. Review of Systems Constitutional: as per Subjective / HPI Gastrointestinal: as per Subjective / HPI Genitourinary: + as per Subjective / HPI Physical Exam Constitutional: well developed and well nourished; no acute distress Respiratory: normal respiratory effort; no respiratory distress and no labored breathing Gastrointestinal (Abdomen): Incisions appropriate, Dermabond intact Skin: No visible rashes or lesions to exposed skin areas Neurologic: moves all extremities and awake Psychiatric: A+Ox3, euthymic affect Genitourinary: Salazar catheter intact Results & Data ([facility]) Vital Signs (Past 12 Hours) Vital Signs Temp Pulse Pulse Resp BP BP Pulse Ox 10/15/22 07:41 36.7 C 58 L 18 120/68 92 10/15/22 02:49 36.7 C 59 L 18 119/61 95 10/14/22 23:20 36.9 C 61 18 111/64 96 10/14/22 22:02 36.9 C 65 14 103/60 94 10/14/22 21:33 O2 Del Method O2 Flow Rate 10/15/22 07:41 Room Air 10/15/22 02:49 Room Air 10/14/22 23:20 Nasal Cannula 1 10/14/22 22:02 Nasal Cannula 1 10/14/22 21:33 Nasal Cannula 1 PG Care Time/CCT Total # of Minutes Spent Total Time Spent with Patient: Total time spent is greater than 50% in coordination of care (as documented) at patient's floor/unit and/or counseling patient: Coding Level of Care Code None Diagnoses Prostate cancer C61
[2022-10-15] MEDS ORDERED: CeleBREX 200 MG CAP PO SCH (09:00)
--- NOTE | 2022-10-15 14:35 | Discharge Summary ---
Date of Service October 15, 2022 Admission HPI Per Admitting Provider 67 year old male with prostate cancer admitted for robotic prostatectomy Admission Exam Per Admitting Provider Constitutional well developed and well nourished; no acute distress Eyes + anicteric sclerae; pupils not irregular Respiratory normal respiratory effort; no respiratory distress, does not use accessory muscles and no cough Cardiovascular well perfused Gastrointestinal (Abdomen) Abdomen soft, nontender, nondistended. There is a surgical scar in the upper abdominal midline -this does not extend down to the umbilicus. No other surgical incisions appreciated. Musculoskeletal Extremities: extremities normal to inspection Skin normal turgor; no rashes and no lesions Neurologic moves all extremities and awake Psychiatric Orientation: alert and oriented x 3 Principal Diagnosis Prostate Cancer Discharge Exam Constitutional well developed and well nourished; no acute distress Respiratory normal respiratory effort; no respiratory distress and no labored breathing Gastrointestinal (Abdomen) Incisions appropriate, Dermabond intact Neurologic moves all extremities and awake Psychiatric A+Ox3, euthymic affect Genitourinary Murillo catheter intact Discharge Data Allergies Allergy/AdvReac Type Severity Reaction Status Date / Time bacitracin Allergy Intermediate BLISTERS Verified 10/14/22 10:51 neomycin Allergy Intermediate BLISTERS Verified 10/14/22 10:51 Penicillins Allergy Intermediate HIVES Verified 10/14/22 10:51 polymyxin B Allergy Intermediate BLISTERS Verified 10/14/22 10:51 Procedures Performed Operation Date: 10/14/22 12:20 Actual Procedures p Robotic Assisted Laparoscopic Radical Retropubic Prostatectomy(Not Applicable) - Modesto Hanks MD Hospital Course (1) Prostate cancer: Plan 67 year old male admitted s/p Robotic Assisted Laparoscopic Radical Retropubic Prostatectomy, bilateral pelvic lymph node dissection with Dr. Hanks. Patient tolerated procedure well. No acute issues postoperatively. He remained afebrile and hemodynamically stable. Appropriate labs. Minimal pain. He tolerated a diet and ambulated without issue. Urine was clear yellow. He was subsequently discharged home on postop day #1 with a Murillo catheter. He was in stable condition at time of discharge. Postoperative follow-up appointments were in place. Discharge instructions were reviewed, all questions were answered. Total Time Total Time Spent Total Time Spent (In Minutes): 15 Discharge Plan Discharge Items Patient Disposition: Home - Self-Care Reason For Visit: Prostate Cancer Discharge Diagnosis: Prostate cancer Condition on Discharge: Good Activity: Per Instructions section Non-emergency contact: Surgeon and Urologist Call non-emergency contact if: you have any medication questions, your pain is not controlled, you have a fever, your temperature is above 101 and your wound has increased redness Follow-up/Referrals: Modesto Hanks MD [Physician] - 10/25/22 8:40 am Jatinder Pablo [Primary Care Provider] - Diet: Regular Addtl Attending Provider Instructions: The surgery you had was: Robot-assisted radical prostatectomy with bilateral pelvic lymph node dissection. Please take all medications as prescribed and keep all follow-ups as scheduled. Please call our office at [phone] with any questions, concerns or need to reschedule appointments for any reason. We are happy to assist you Medications: Please take all medications as prescribed. For pain control, you can take tylenol every 6 hours. You can also take ibup rofen every 6 hours. If you have been prescribed a narcotic pain medication, please take this according to the instructions on the label. You have been prescribed a single dose of antibiotics (Bactrim) to be taken 1 hour prior to your appointment for murillo catheter removal. Activity: We recommend having someone with you for the first few days after surgery to help care for you. For the first 2 weeks after surgery, we would like you to get up and walk around your house. However, we recommend limit physical activity that would increase your heart rate. This will allow your body to rest and heal. Take naps if you feel tired. Don't lift anything heavier than 10 pounds, mow the law or ride a bicycle until your follow-up appointment. Please avoid long car rides. Home Care: Unless directed otherwise, drink 6 to 8 glasses of water a day (enough to keep your urine light colored). This will also help keep a healthy flow of urine. We recommend using a stool softener such as colace or miralax for the first two weeks to avoid constipation. Murillo Catheter or Suprapubic Catheter care: Keep the catheter well secured with either a leg back or leg strap with large bag. Empty your bag when it's about half full. You may notice some blood in the bag. This is normal after surgery and while the catheter is in place. Use mild soap (such as Dove or Dial) and water to wash the catheter and the head of your penis daily, or more frequently if needed. Return to your normal diet, we encourage good protein intake to promote healing. You may shower as normal. Please avoid tub baths or soaking until catheter removed and incisions well healed. Wearing sweat pants while you have the catheter is recommended, they will be more comfortable. Follow-up We will have you come to the office in approximately 10 days for catheter removal. - Please remember to take your dose on antibiotics 1 hour prior to this appointment. We will call you with the pathology results once they are available. We will schedule an office visit in approximately 3 months with PSA prior. Your final pathology report will be discussed at your physician follow-up appointment. Call [facility] at [phone] right away if you have any of the following: Chest pain or trouble breathing (call [phone] or go to the hospital) Fever of 101F or higher, uncontrolled vomiting Heavy bleeding, clots, or bright red blood from the catheter Catheter that falls out or stops draining Foul-smelling discharge from your catheter Redness, swelling, warmth, or increased pain at your incision site Drainage, pus, or bleeding from your incision Pending Studies at Discharge: No Stand-Alone Forms: My [facility] Medications and DC Order Prescriptions: New sulfamethoxazole-trimethoprim [Bactrim DS] 800-160 mg tablet 1 tab PO ONCE Qty: 1 0RF Continued tadalafil 5 mg tablet 5 mg PO HS celecoxib [Celebrex] 200 mg capsule 200 mg PO QAM cholecalciferol (vitamin D3) [Vitamin D3] 25 mcg (1,000 unit) Capsule 25 mcg PO QAM levothyroxine 100 mcg Capsule 100 mcg PO QAM aspirin 81 mg Capsule 81 mg PO QAM Discharge Orders: Discharge Order (Routine); Ordered 10/15/22 Ordered By: Marcella Grover/Other Patient Handouts: What Is Prostate Cancer?, Prostate Anatomy Admission Data Admit Date/Time: 10/14/22 17:45 Attending Provider: Modesto Hanks Admit Provider: Modesto Hanks Primary Care Provider: Jatinder Pablo Other Interventions: Discharge Summary Assessment (RN) Last Done: 10/15/22 10:51 Coding Level of Care Code 23244 IN/OBS DISCH 30 MIN/LESS Diagnoses Prostate cancer C61
== END 2022-10-15 11:17 | disposition home or self-care (01) | DRG 708 ==
LOC: ASU 10:18 → 3N 17:45